=== PATIENT | female | born 1970 | race Caucasian/White ===

== ENCOUNTER → 2018-05-08 | Day surgery (SDC) | payer OTHER ==
[~2018-05-08] VITALS: Ht 152.4 cm; Wt 65.8 kg
--- NOTE | 2018-05-08 10:21 | Operative Report ---
Operative/Inv Procedure Report Surgery Date: 05/08/18 Name of Procedure: right ESWL Pre-Operative Diagnosis: Right LP stones 4 and 5mm stones Post-Operative Diagnosis: same Estimated Blood Loss: scant Surgeon/Belt Loop Machine Operator: Elaine Long MD Anesthesia: local monitored anesthesi Complications: none Condition: stable Operative Indication: right renal colic Operative/Procedure Note Note: 47yo female with a recent diagnosis of microhematuria during her annual PE. On renal US, she was found to have two LP right renal stones. She has no irritative symptoms and wakes 1-2x per night bc she drinks up to bedtime. She has no voiding issues but admits to coughing to get the urine to be expelled quicker. She does experience GABRIELA with coughing and has no UUI. She has had a kidney stone once and passed it. SHe has no hx of chronic UTIs. She wished to have ESWL to treat her stones. She was given the risks, benefits and alternatives in the office and again in the preop holding area. All questions were answered and she was marked. Patient was taken to the OR and placed in the supine position. She was optimally placed and time out was performed. The stones were easily identified in the LP. IV antibiotics were infused and IV sedation was begun. She had a total of 2500 shocks at a range of power 1-20. She tolerated the well and was transferred to the recovery room in stable condition. The stones were visibly changed at the end of the procedure. Findings: two right LP stones visibly changed at the end of the procedure Discharge Disposition: Same Day Admissions
== END ==
LOC: STS 03:38
DX: N20.0 Calculus of kidney (principal); Z87.442 Personal history of urinary calculi; R31.29 Other microscopic hematuria; N39.3 Stress incontinence (female) (male); N95.2 Postmenopausal atrophic vaginitis; F17.200 Nicotine dependence, unspecified, uncomplicated
CPT/HCPCS: 81025; J0690; J2250; J2405